=== PATIENT | female | born 1940 | race Caucasian/White ===

== ENCOUNTER → 2017-03-08 | Outpatient (CLI) | payer OTHER, MEDICARE | LOC: FIMAGING 10:53 | PROVIDERS: ATTEND Internal Medicine | DX: Z12.31 Encounter for screening mammogram for malignant neoplasm of breast (principal) | CPT/HCPCS: G0202 ==

== ENCOUNTER → 2017-03-09 | Outpatient (CLI) | payer OTHER, MEDICARE | LOC: FIMAGING 13:35 | PROVIDERS: ATTEND Internal Medicine | DX: M79.89 Other specified soft tissue disorders (principal) ==

== ENCOUNTER → 2017-03-20 | Outpatient (CLI) | payer OTHER, MEDICARE | LOC: FIMAGING 13:55 | PROVIDERS: ATTEND Internal Medicine | DX: Z12.39 Encounter for other screening for malignant neoplasm of breast (principal); N63 Unspecified lump in breast ==

== ENCOUNTER → 2017-04-02 | Outpatient (CLI) | payer OTHER, MEDICARE ==
[~2017-04-02] MED LIST: BUPIVACAINE 0.5% 10 ML SDV ONE; LIDO/EPI 1% **Not for Epidural 20 ML MDV ONE; LIDOCAINE 1% 300 MG/30 ML SDV ONE; THROMBIN (BOVINE) 5,000 UNIT VIAL TP ONE
== END ==
LOC: FIMAGING 07:00
PROVIDERS: ATTEND Internal Medicine
PROC: 0HBU3ZX Excision of Left Breast, Percutaneous Approach, Diagnostic (ICD-10-PCS; principal; 2017-04-02)
DX: C50.912 Malignant neoplasm of unspecified site of left female breast (principal)
CPT/HCPCS: 19083; 19084; 88360; G0206

== ENCOUNTER → 2017-04-12 | Outpatient (CLI) | payer OTHER, MEDICARE ==
[~2017-04-12] MED LIST changes: -BUPIVACAINE 0.5% 10 ML SDV ONE; +GADOBUTROL 10 ML VIAL IVP ONE; -LIDO/EPI 1% **Not for Epidural 20 ML MDV ONE; -LIDOCAINE 1% 300 MG/30 ML SDV ONE; -THROMBIN (BOVINE) 5,000 UNIT VIAL TP ONE
== END ==
LOC: FIMAGING 08:56
PROVIDERS: ATTEND Surgery
DX: C50.412 Malignant neoplasm of upper-outer quadrant of left female breast (principal)
CPT/HCPCS: 0159T; A9585; C8908

== ENCOUNTER → 2017-04-25 | Outpatient (CLI) | payer OTHER, MEDICARE | LOC: FIMAGING 12:40 | PROVIDERS: ATTEND Internal Medicine | DX: Z13.820 Encounter for screening for osteoporosis (principal); M81.0 Age-related osteoporosis without current pathological fracture; Z78.0 Asymptomatic menopausal state ==

== ENCOUNTER 2017-05-08 08:20 | Inpatient (IN) | payer OTHER, MEDICARE ==
[2017-05-08] MEDS ORDERED: ceFAZolin 2 GM/SWFI 2 GM/20 ML SYR IVP ONE (09:23)
[2017-05-08] MEDS ORDERED: LIDOCAINE 1% 2 ML INJ ID PRN (09:25)
[2017-05-08] MEDS ORDERED: LR 1,000 ML IV ONE (09:25)
[2017-05-08] MEDS ORDERED: THROMBIN (BOVINE) 20,000 UNIT SPRAY TP ONE (09:30)
[2017-05-08] MEDS ORDERED: BUPIVACAINE 0.5% 30 ML SDV ONE (09:30)
--- NOTE | 2017-05-08 09:47 | CPEKG ---
Heart Rate: 71 RR Interval: 845 P-R Interval: 144 QRSD Interval: 92 QT Interval: 428 QTC Interval: 466 P [place]: 72 QRS [place]: 47 T Wave [place]: 60 EKG Severity - NORMAL ECG - EKG Impression: SINUS RHYTHM Electronically Signed By: Hayder Desir 08-May-2017 10:06:32
[2017-05-08 10:19] LABS: PLATELET COUNT 215 10^3/uL (150-400)
--- NOTE | 2017-05-08 10:22 | PDHPUP ---
History & Physical Update H&P update statement: This history and physical update is based on an assessment of the patient which was completed after admission or registration (within 24 hours), but prior to the surgery/procedure. H&P update: H&P reviewed & patient examined, no change in patient's condition since H&P completed
[2017-05-08] MEDS ORDERED: MIDAZOLAM 2 MG/2 ML VIAL ONE (12:24)
[2017-05-08] MEDS ORDERED: PROPOFOL 200 MG/20 ML VIAL ONE ×2 (12:25)
[2017-05-08] MEDS ORDERED: fentaNYL 100 MCG/2 ML INJ ONE (12:25)
[2017-05-08] MEDS ORDERED: LIDOCAINE 2% 5 ML SDV ONE (12:28)
[2017-05-08] MEDS ORDERED: MIDAZOLAM 2 MG/2 ML VIAL IVP ONE (12:33)
--- NOTE | 2017-05-08 12:45 | PDANEPAE ---
ANE History of Present Illness h/o breast ca ANE Past Medical History - Cardiovascular History Hx Hypertension: Yes Hx Arrhythmias: No Hx Chest Pain: No Hx Coronary Artery / Peripheral Vascular Disease: No Hx CHF / Valvular Disease: No Hx Palpitations: No Cardiovascular History Comment: h/o aaa - Pulmonary History Hx COPD: Yes Hx Recent Upper Respiratory Infection: Yes Hx Oxygen in Use at Home: Yes O2 in Use at Home (L/minute): 2-3L Hx Sleep Apnea: No Sleep Apnea Screening Result - Last Documented: Positive Pulmonary History Comment: RECORDS FROM [facility] - Neurologic History Hx Cerebrovascular Accident: No Hx Seizures: No Hx Dementia: No - Endocrine History Hx Diabetes: No Obesity: yes - Renal History Hx Renal Disorders: Yes Renal History Comment: 2013 KIDNEY STONES - Liver History Hx Hepatic Disorders: No - Neurological & Psychiatric Hx Hx Neurological and Psychiatric Disorders: No - Cancer History Hx Cancer: Yes - Congenital Disorder History Hx Congenital Disorders: No - GI History Hx Gastrointestinal Disorders: No - Other Health History Other Health History: LEFT EYE DRY SCALEY - Chronic Pain History Chronic Pain: Yes (LOWER BACK) - Surgical History Prior Surgeries: AAA 2013, 2010 FX RIGHT HIP WITH HARDWARE ANE Review of Systems Review of Systems: - Exercise capacity METS (RN): 3 METS ANE Patient History - Allergies Allergies/Adverse Reactions: No Known Allergies Allergy (Verified 05/04/17 16:16) - Home Medications Home medications: home medication list seen and reviewed Home Medications: Albuterol [Proventil Inhaler HFA (*)] 1 - 2 puffs IH DAILY PRN 05/03/17 [Last Taken 05/06/17] Aspirin [Aspirin 81mg (*)] 81 mg PO DAILY 05/03/17 [Last Taken 05/01/17] Atorvastatin Calcium [Lipitor 20 mg (*)] 20 mg PO DAILY18 05/03/17 [Last Taken 05/07/17] Carvedilol [Coreg (*)] 25 mg PO BIDMEAL 05/03/17 [Last Taken 05/08/17] Lisinopril [Zestril 10 mg (*)] 10 mg PO DAILY 05/03/17 [Last Taken 05/08/17] Umeclidinium Brm/Vilanterol Tr [Anoro Ellipta 62.5-25 Mcg INH] 1 each IH DAILY 05/03/17 [Last Taken 05/07/17] - NPO status NPO Since - Liquids (Date): 05/08/17 NPO Since - Liquids (Time): 04:30 NPO Since - Solids (Date): 05/07/17 NPO Since - Solids (Time): 19:00 - Anes Hx Anes Hx: slow to awaken from anesthesia - Smoking Hx Smoking Status: Former smoker - Family Anes Hx Family Hx Anesthesia Complications: NONE ANE Labs/Vital Signs - Labs Result Diagrams: 05/08/17 09:55 05/08/17 09:55 - Vital Signs Blood Pressure: 141/62 Heart Rate: 72 Respiratory Rate: 16 O2 Sat (%): 90 Height: 162.56 cm Weight: 102.058 kg ANE Physical Exam - Airway Neck exam: FROM Mallampati Score: Class 2 Mouth exam: normal dental/mouth exam - Pulmonary Pulmonary: no respiratory distress - Cardiovascular Cardiovascular: regular rate and rhythym - ASA Status ASA Status: III ANE Anesthesia Plan Anesthesia Plan: GA w LMA Urgent/Emergent Case: Vickie acuña completed preop but documented later for safe timely pt care
[2017-05-08] MEDS ORDERED: DEXAMETHASONE 4 MG/ML VIAL ONE (12:52)
[2017-05-08] MEDS ORDERED: ONDANSETRON 4 MG/2 ML VIAL ONE (12:53)
[2017-05-08] MEDS ORDERED: HYDROmorphONE/DILAUDID 2 MG/ML INJ ONE (13:06)
[2017-05-08] MEDS ORDERED: OXYCODONE/APAP 5/325 TAB PO PRN (14:21)
[2017-05-08] MEDS ORDERED: ALBUTEROL 3 ML DEYVIAL IH PRN (14:21)
[2017-05-08] MEDS ORDERED: LR 500 ML IV PRN (14:21)
[2017-05-08] MEDS ORDERED: fentaNYL 100 MCG/2 ML INJ IVP PRN (14:21)
[2017-05-08] MEDS ORDERED: ONDANSETRON 4 MG/2 ML VIAL IVP PRN ×2 (14:21→15:00)
[2017-05-08] MEDS ORDERED: PROMETHAZINE HCL 25 MG/ML INJ IVP PRN (14:21)
[2017-05-08] MEDS ORDERED: ACETAMINOPHEN 500 MG TAB PO PRN (14:21)
[2017-05-08] MEDS ORDERED: LABETALOL HCL 50 MG/10 ML SYR IVP PRN (14:21)
[2017-05-08] MEDS ORDERED: NALOXONE HCL 0.4 MG/ML INJ IVP PRN (14:21)
--- NOTE | 2017-05-08 14:51 | POSTANESTH ---
Post Anesthetic Evaluation Cardiovascular Status: Normal, Stable Respiratory Status: Normal, Stable Level of Consciousness/Mental Status: Can Participate in Eval Pain Control: Adequate, Prn Tx Ordered Nausea/Vomiting Control: Adequate, Prn Tx Ordered Complications Possibly Related to Anesthesia: None Noted
[2017-05-08] MEDS ORDERED: HYDROmorphONE/DILAUDID 1 MG/ML INJ ONE (14:54)
[2017-05-08] MEDS: HYDROmorphONE/DILAUDID 1 MG/ML INJ IVP PRN ×3 (14:55→15:29)
--- NOTE | 2017-05-08 14:55 | POSTOPPROG ---
Post Op Note Date of Operation: 05/08/17 Surgeon: Alexis Payne Continuous Linter Drier Operator: Marleen Byers Anesthesiologist: Cedric Holcomb Anesthesia: GET(General Endotracheal) Pre-op Diagnosis: Left multifocal breast cancer Post-op Diagnosis: same Procedure: B mastectomy, L sentinel LN biopsy Findings: LN not localized on R, 3 negative L sentinel LNs Inf/Abcess present in the surg proc area at time of surgery?: No EBL: 50-100 Complications: none Drains: Jose Tenorio (x4) Specimen(s): R and L breasts and L sentinel LNs to pathology
[2017-05-08] MEDS ORDERED: HYDROmorphone HCL/NS/PF 0.4 MG/2 ML SYR IVP PRN (15:00)
[2017-05-08] MEDS ORDERED: ALBUTEROL 200 PUFFS/18 GM MDI IH PRN (15:02)
[2017-05-08] MEDS: NS W/ 20 KCl/L 1,000 ML IV SCH (17:56)
[2017-05-08] MEDS: KETOROLAC 15 MG/1 ML SDV IVP SCH (20:00)
[2017-05-08] MEDS: CARVEDILOL 25 MG TAB PO SCH (21:34)
[2017-05-08] MEDS: ATORVASTATIN CALCIUM 20 MG TAB PO SCH (21:34)
[2017-05-08] MEDS: OXYCODONE/APAP 5/325 TAB PO PRN (21:35)
[2017-05-08] MEDS: DOCUSATE SODIUM 100 MG CAP PO SCH (21:35)
[2017-05-09] MEDS: KETOROLAC 15 MG/1 ML SDV IVP SCH ×2 (03:03→05:34)
[2017-05-09] MEDS: Umeclidinium Brm/Vilanterol Tr [Anoro Ellipta 62.5-25 Mcg Inh] IH SCH (09:15)
[2017-05-09] MEDS: LISINOPRIL 10 MG TAB PO SCH (09:54)
[2017-05-09] MEDS: CARVEDILOL 25 MG TAB PO SCH ×2 (09:54→18:10)
[2017-05-09] MEDS: DOCUSATE SODIUM 100 MG CAP PO SCH ×2 (09:54→20:32)
[2017-05-09] MEDS: ASPIRIN 81 MG CHEWABLE TAB PO SCH (09:54)
[2017-05-09] MEDS: OXYCODONE/APAP 5/325 TAB PO PRN ×3 (10:00→22:11)
[2017-05-09] MEDS ORDERED: IBUPROFEN 600 MG TAB PO PRN (11:11)
--- NOTE | 2017-05-09 11:20 | SOAPPROG ---
SOAP Progress Note Assessment/Plan: Assessment/Plan: 76 Y F s/p B mastectomy and L SN bx, POD#1. Doing quite well overall. Also seen by Dr. Payne. Slight Cr elevation to 1.1. Will be cautious and hold toradol. Will use ibuprofen instead. ESTEBAN drainage. Continue to strip and record. Drainage slightly high, but appears serosanguinous. Will repeat H&H in am. Pain is controlled. Regular diet. Binder PRN comfort. Dressing change and shower tomorrow. Dispo: likely home tomorrow. Rx percocet and ibuprofen in chart. S: pain controlled. oob in chair. positive attitude. no sob. eating breakfast. O: alert, nad mmm no wob abd soft wounds dressed, no saturation 05/09/17 11:20 Objective: Vital Signs Temp Pulse Resp BP Pulse Ox 36.5 C 83 18 134/61 H 93 05/09/17 08:06 05/09/17 08:06 05/09/17 08:06 05/09/17 08:06 05/09/17 08:06 Laboratory Results 05/09/17 04:42 05/09/17 04:42 05/08/17 05/09/17 05/10/17 05:59 05:59 05:59 Intake Total 0833 Output Total 869 300 Balance 1178 -300 ICD10 Worksheet Patient Problems: Problems Problem Status Onset Breast cancer Acute - ICD10 Problem Qualifiers (1) Breast cancer Qualifiers: Laterality: left
--- NOTE | 2017-05-09 11:20 | SOAPPROG ---
SOAP Progress Note Assessment/Plan: Assessment/Plan: 76 Y F s/p B mastectomy and L SN bx, POD#1. Doing quite well overall. Also seen by Dr. Payne. Slight Cr elevation to 1.1. Will be cautious and hold toradol. Will use ibuprofen instead. ESTEBAN drainage. Continue to strip and record. Drainage slightly high, but appears serosanguinous. Will repeat H&H in am. Pain is controlled. Regular diet. Binder PRN comfort. Dressing change and shower tomorrow. Dispo: likely home tomorrow. Rx percocet and ibuprofen in chart. S: pain controlled. oob in chair. positive attitude. no sob. eating breakfast. O: alert, nad mmm no wob abd soft wounds dressed, no saturation 05/09/17 11:20 Objective: Vital Signs Temp Pulse Resp BP Pulse Ox 36.5 C 83 18 134/61 H 93 05/09/17 08:06 05/09/17 08:06 05/09/17 08:06 05/09/17 08:06 05/09/17 08:06 Laboratory Results 05/09/17 04:42 05/09/17 04:42 05/08/17 05/09/17 05/10/17 05:59 05:59 05:59 Intake Total 2233 Output Total 860 300 Balance 1178 -300 ICD10 Worksheet Patient Problems: Problems Problem Status Onset Breast cancer Acute - ICD10 Problem Qualifiers (1) Breast cancer Qualifiers: Laterality: left
--- NOTE | 2017-05-09 11:20 | SOAPPROG ---
SOAP Progress Note Assessment/Plan: Assessment/Plan: 76 Y F s/p B mastectomy and L SN bx, POD#1. Doing quite well overall. Also seen by Dr. Payne. Slight Cr elevation to 1.1. Will be cautious and hold toradol. Will use ibuprofen instead. ESTEBAN drainage. Continue to strip and record. Drainage slightly high, but appears serosanguinous. Will repeat H&H in am. Pain is controlled. Regular diet. Binder PRN comfort. Dressing change and shower tomorrow. Dispo: likely home tomorrow. Rx percocet and ibuprofen in chart. S: pain controlled. oob in chair. positive attitude. no sob. eating breakfast. O: alert, nad mmm no wob abd soft wounds dressed, no saturation 05/09/17 11:20 Objective: Vital Signs Temp Pulse Resp BP Pulse Ox 36.5 C 83 18 134/61 H 93 05/09/17 08:06 05/09/17 08:06 05/09/17 08:06 05/09/17 08:06 05/09/17 08:06 Laboratory Results 05/09/17 04:42 05/09/17 04:42 05/08/17 05/09/17 05/10/17 05:59 05:59 05:59 Intake Total 9153 Output Total 866 300 Balance 1178 -300 ICD10 Worksheet Patient Problems: Problems Problem Status Onset Breast cancer Acute - ICD10 Problem Qualifiers (1) Breast cancer Qualifiers: Laterality: left
[2017-05-09] MEDS: ATORVASTATIN CALCIUM 20 MG TAB PO SCH (18:10)
[2017-05-09] MEDS: NS W/ 20 KCl/L 1,000 ML IV SCH (22:11)
[2017-05-09 22:15] VITALS: RESP 16
[2017-05-10] MEDS: OXYCODONE/APAP 5/325 TAB PO PRN ×2 (02:35→09:21)
[2017-05-10 07:56] VITALS: BP 97/49; PULSE 76; TEMP 97.9; O2SAT 92
[2017-05-10] MEDS ORDERED: ENOXAPARIN 40 MG/0.4 ML SYR SC SCH (09:00)
[2017-05-10] MEDS: ASPIRIN 81 MG CHEWABLE TAB PO SCH (09:20)
[2017-05-10] MEDS: DOCUSATE SODIUM 100 MG CAP PO SCH (09:21)
[2017-05-10] MEDS: CARVEDILOL 25 MG TAB PO SCH (09:23)
[2017-05-10] MEDS: LISINOPRIL 10 MG TAB PO SCH (09:23)
[2017-05-10] MEDS: Umeclidinium Brm/Vilanterol Tr [Anoro Ellipta 62.5-25 Mcg Inh] IH SCH ×2 (10:09→10:13)
--- NOTE | 2017-05-10 12:19 | ASMTCMCOM ---
CM Note CM Note Notes: Pt admitted for L breast mastectomy. Pt to DC today with no DC needs. Date Signed: 05/10/2017 12:18 PM Electronically Signed By:Suzette Montana LCSW
--- NOTE | 2017-05-10 12:27 | SOAPPROG ---
SOAP Progress Note Assessment/Plan: Assessment: 76-year-old female status post bilateral mastectomy Doing well, tolerating regular diet, pain well controlled on oral pain medicine. Physical exam Stable incisions clean dry and intact drains with a small amount of serosanguineous discharge CTA bilaterally Plan: Seen examined by Dr. Payne Prescription given to patient Okay to discharge home with daughter Patient has outpatient follow-up with Dr. Velazquez scheduled 05/10/17 12:26 Objective: Vital Signs Temp Pulse Resp BP Pulse Ox 36.6 C 76 16 97/49 L 92 05/10/17 07:51 05/10/17 07:51 05/10/17 07:51 05/10/17 09:23 05/10/17 07:51 Laboratory Results 05/10/17 04:59 05/09/17 04:42 05/09/17 05/10/17 05/11/17 05:59 05:59 05:59 Intake Total 2043 3200 Output Total 865 701 105 Balance 1178 2499 -105 ICD10 Worksheet Patient Problems: Problems Problem Status Onset Breast cancer Acute
--- NOTE | 2017-05-10 16:39 | ASDISCHSUM ---
Discharge Information Plan Status: Medically Cleared to Leave: Discharge Date:05/10/2017 02:56 PM CM D/C Disposition: ADT D/C Disposition:Home, Routine, Self-Care Projected Discharge Date:05/10/2017 02:56 PM Transportation at D/C: Discharge Delay Reason: Follow-Up Date:05/10/2017 02:56 PM Discharge Slot: Final Diagnosis: Placement Information Patient Contact Information Contact Name:DEZ Relationship:Daughter Address: City: [facility] Phone: State/Zip Code: Email: Financial Information Financial Class: Primary Plan Desc:MEDICARE INPATIENT Primary Plan Number:[id number] Secondary Plan Desc:AARP/MDR SUPPLEMENT Secondary Plan Number:[id number] Assessment Information [facility] CM Progress Note CM Note CM Note Notes: Pt admitted for L breast mastectomy. Pt to DC today with no DC needs. Date Signed: 05/10/2017 12:18 PM Electronically Signed By:Suzette Montana LCSW Intervention Information Intervention Type:*MAI-Signed Date of Service:05/09/2017 11:30 AM Patient Type:Observation Staff Member:Ratna Basilio Hours: Discipline: Severity: Comment: Intervention Type:*Ubaldo 74 Date of Service:05/10/2017 03:50 PM Patient Type:Inpatient Staff Member:СЕРГЕЙ Farrar Susan Hours: Discipline: Severity: Comment:
--- NOTE | 2017-05-10 16:39 | ASDISCHSUM ---
Discharge Information Plan Status: Medically Cleared to Leave: Discharge Date:05/10/2017 02:56 PM CM D/C Disposition: ADT D/C Disposition:Home, Routine, Self-Care Projected Discharge Date:05/10/2017 02:56 PM Transportation at D/C: Discharge Delay Reason: Follow-Up Date:05/10/2017 02:56 PM Discharge Slot: Final Diagnosis: Placement Information Patient Contact Information Contact Name:DEZ Relationship:Daughter Address: City: [facility] Phone: State/Zip Code: Email: Financial Information Financial Class: Primary Plan Desc:MEDICARE INPATIENT Primary Plan Number:[id number] Secondary Plan Desc:AARP/MDR SUPPLEMENT Secondary Plan Number:[id number] Assessment Information [facility] CM Progress Note CM Note CM Note Notes: Pt admitted for L breast mastectomy. Pt to DC today with no DC needs. Date Signed: 05/10/2017 12:18 PM Electronically Signed By:Suzette Montana LCSW Intervention Information Intervention Type:*MAI-Signed Date of Service:05/09/2017 11:30 AM Patient Type:Observation Staff Member:Ratna Basilio Hours: Discipline: Severity: Comment: Intervention Type:*Ubaldo 72 Date of Service:05/10/2017 03:50 PM Patient Type:Inpatient Staff Member:СЕРГЕЙ Farrar Susan Hours: Discipline: Severity: Comment:
--- NOTE | 2017-05-10 16:39 | ASDISCHSUM ---
Discharge Information Plan Status: Medically Cleared to Leave: Discharge Date:05/10/2017 02:56 PM CM D/C Disposition: ADT D/C Disposition:Home, Routine, Self-Care Projected Discharge Date:05/10/2017 02:56 PM Transportation at D/C: Discharge Delay Reason: Follow-Up Date:05/10/2017 02:56 PM Discharge Slot: Final Diagnosis: Placement Information Patient Contact Information Contact Name:DEZ Relationship:Daughter Address: City: [facility] Phone: State/Zip Code: Email: Financial Information Financial Class: Primary Plan Desc:MEDICARE INPATIENT Primary Plan Number:[id number] Secondary Plan Desc:AARP/MDR SUPPLEMENT Secondary Plan Number:[id number] Assessment Information [facility] CM Progress Note CM Note CM Note Notes: Pt admitted for L breast mastectomy. Pt to DC today with no DC needs. Date Signed: 05/10/2017 12:18 PM Electronically Signed By:Suzette Montana LCSW Intervention Information Intervention Type:*MAI-Signed Date of Service:05/09/2017 11:30 AM Patient Type:Observation Staff Member:Ratna Basilio Hours: Discipline: Severity: Comment: Intervention Type:*Ubaldo 72 Date of Service:05/10/2017 03:50 PM Patient Type:Inpatient Staff Member:СЕРГЕЙ Farrar Susan Hours: Discipline: Severity: Comment:
--- NOTE | 2017-05-10 18:46 | GDS ---
[f rep st] DISCHARGE SUMMARY ADMISSION DIAGNOSIS: Breast cancer. OTHER PERTINENT DIAGNOSES: Chronic obstructive pulmonary disease. HOSPITAL COURSE: The patient is a very pleasant, 76-year-old female, who had diagnosed left multifoc al breast cancer on biopsy. She underwent bilateral mastectomy and left sentinel node excision with Dr. Payne on 05/08/2017. Hospital course fairly unremarkable, the patient is being discharged home w [facility] Percocet for pain control, #30. She has received drain teaching as she is being sent home with J ackson-Tenorio drains in place. She will call our office to schedule appointment for early next week, for wound check and drain remov al. It was explained to the patient that julien will likely be removed at a later date. Pathology from the surgery is still pending at the time of this dictation, the time of discharge. Her lymph no de excision was negative on frozen section during the surgery. /[id number]/MODL
--- NOTE | 2017-05-10 18:46 | GDS ---
[f rep st] DISCHARGE SUMMARY ADMISSION DIAGNOSIS: Breast cancer. OTHER PERTINENT DIAGNOSES: Chronic obstructive pulmonary disease. HOSPITAL COURSE: The patient is a very pleasant, 76-year-old female, who had diagnosed left multifoc al breast cancer on biopsy. She underwent bilateral mastectomy and left sentinel node excision with Dr. Payne on 05/08/2017. Hospital course fairly unremarkable, the patient is being discharged home w [facility] Percocet for pain control, #30. She has received drain teaching as she is being sent home with J ackson-Tenorio drains in place. She will call our office to schedule appointment for early next week, for wound check and drain remov al. It was explained to the patient that julien will likely be removed at a later date. Pathology from the surgery is still pending at the time of this dictation, the time of discharge. Her lymph no de excision was negative on frozen section during the surgery. /[id number]/MODL
--- NOTE | 2017-05-10 18:46 | GDS ---
[f rep st] DISCHARGE SUMMARY ADMISSION DIAGNOSIS: Breast cancer. OTHER PERTINENT DIAGNOSES: Chronic obstructive pulmonary disease. HOSPITAL COURSE: The patient is a very pleasant, 76-year-old female, who had diagnosed left multifoc al breast cancer on biopsy. She underwent bilateral mastectomy and left sentinel node excision with Dr. Payne on 05/08/2017. Hospital course fairly unremarkable, the patient is being discharged home w [facility] Percocet for pain control, #30. She has received drain teaching as she is being sent home with J ackson-Tenorio drains in place. She will call our office to schedule appointment for early next week, for wound check and drain remov al. It was explained to the patient that julien will likely be removed at a later date. Pathology from the surgery is still pending at the time of this dictation, the time of discharge. Her lymph no de excision was negative on frozen section during the surgery. /[id number]/MODL
== END 2017-05-10 14:56 | disposition home or self-care (01) | DRG 581 ==
LOC: F3E 08:51 → F1N 12:00 → OBSVTOIN 05-09 12:30
PROVIDERS: ADMIT Surgery; ATTEND Surgery
DX: C50.412 Malignant neoplasm of upper-outer quadrant of left female breast (principal); J44.9 Chronic obstructive pulmonary disease, unspecified; Z87.891 Personal history of nicotine dependence
CPT/HCPCS: A9520; J0690; J1100; J1170; J1650; J1885; J2250; J2405; J2704; J3010

== ENCOUNTER → 2017-06-04 | Outpatient (CLI) | payer OTHER, MEDICARE | LOC: BHFA 13:15 | PROVIDERS: ATTEND Internal Medicine Cardiovascular Disease | DX: Z51.11 Encounter for antineoplastic chemotherapy (principal) ==

== ENCOUNTER 2017-06-08 07:57 | Day surgery (SDC) | payer OTHER, MEDICARE ==
--- NOTE | 2017-06-06 15:55 | GHP ---
[f rep st] PREOP HISTORY AND PHYSICAL DATE OF ADMISSION: 06/08/2017 HISTORY OF PRESENT ILLNESS: The patient is a pleasant, 76-year-old female, status post bilateral mas tectomy for multifocal ER/SC negative, HER-2 positive left breast cancer. She is also followed by On cology and has plans for chemotherapy. She is here for PowerPort placement. Incidentally, she also has seen Physical Therapy and had a heart echo at which time, seromas were kyler ntified. These do not bother her, but she wonders if they need to be aspirated. PAST MEDICAL HISTORY: Includes breast cancer, as described above. Also COPD, hypertension, abdomina l aortic aneurysm, mitral valve disease, history of ureteral calculus, obesity. PAST SURGICAL HISTORY: Aortic aneurysm repair, mastectomy as described above, cholecystectomy, right hip fracture repair. MEDICATIONS: Include albuterol, Anoro Ellipta inhaler, 81 mg aspirin, atorvastatin, carvedilol, lorna nopril. ALLERGIES: Cats. SOCIAL HISTORY: Patient is . She is a former smoker and quit in 2010. She is often here wi th her daughter for clinic visits. PHYSICAL EXAM: GENERAL: Reveals a well-developed, well-nourished, 76-year-old female, increased BMI , in no acute distress. HEENT: Normocephalic, atraumatic. CHEST: Clear to auscultation bilaterall y. CARDIAC: Regular rate and rhythm. ABDOMEN: Soft, nontender, obese. BREAST EXAM: Bilateral ma stectomy incisions are clean, dry, and intact, without erythema. IMPRESSION: This is a 76-year-old female with multifocal ER/SC negative, HER-2 positive left breast cancer status post surgery needing a port for chemotherapy. PLAN: Plan is to proceed with a PowerPort placement with fluoroscopic guidance. Risks and options h ave been discussed including, but not limited to, bleeding, infection, nerve injury, pneumothorax, he mothorax, failure to place port, need for opposite side port placement, port malfunction, need for re vision and/or replacement, alternate access and other problems, and she requests to proceed. Also she will talk with Dr. Payne the morning of surgery about her mastectomy site seromas. These co uld be aspirated if they decide to in the operating room. /[id number]/MODL
--- NOTE | 2017-06-07 17:55 | PDHPUP ---
History & Physical Update H&P update statement: This history and physical update is based on an assessment of the patient which was completed after admission or registration (within 24 hours), but prior to the surgery/procedure. Updated
[2017-06-08] MEDS ORDERED: SODIUM BICARBONATE 10 MEQ/10 ML SYR IVP ONE (08:09)
[2017-06-08] MEDS ORDERED: BUPIVACAINE 0.5% 30 ML SDV ONE (08:09)
[2017-06-08] MEDS ORDERED: BACITRACIN ZINC 14.2 GM OINTTUBE TP ONE (08:10)
[2017-06-08] MEDS ORDERED: LIDOCAINE 1% 300 MG/30 ML SDV ONE (08:10)
[2017-06-08] MEDS ORDERED: ceFAZolin 2 GM/SWFI 2 GM/20 ML SYR IVP ONE (08:31)
[2017-06-08] MEDS ORDERED: LR 1,000 ML IV ONE (08:32)
[2017-06-08] MEDS ORDERED: LIDOCAINE 1% 2 ML INJ ID PRN (08:32)
[2017-06-08 08:41] VITALS: PULSE 69; RESP 16
[2017-06-08] MEDS ORDERED: MIDAZOLAM 2 MG/2 ML VIAL IVP ONE (09:03)
--- NOTE | 2017-06-08 09:04 | PDANEPAE ---
ANE History of Present Illness breast ca ANE Past Medical History - Cardiovascular History Hx Hypertension: Yes Hx Arrhythmias: No Hx Chest Pain: No Hx Coronary Artery / Peripheral Vascular Disease: No Hx CHF / Valvular Disease: No Hx Palpitations: No Cardiovascular History Comment: h/o aaa - Pulmonary History Hx COPD: Yes Hx Asthma/Reactive Airway Disease: No Hx Recent Upper Respiratory Infection: Yes Hx Oxygen in Use at Home: Yes O2 in Use at Home (L/minute): 2L NC for night and walking Hx Sleep Apnea: No Sleep Apnea Screening Result - Last Documented: Negative Pulmonary History Comment: RECORDS FROM [facility] - Neurologic History Hx Cerebrovascular Accident: No Hx Seizures: No Hx Dementia: No - Endocrine History Hx Diabetes: No Obesity: yes, moderate - Renal History Hx Renal Disorders: Yes Renal History Comment: 2013 KIDNEY STONES - Liver History Hx Hepatic Disorders: No - Neurological & Psychiatric Hx Hx Neurological and Psychiatric Disorders: No - Cancer History Hx Cancer: Yes Cancer History Comment: L breast CA-will undergo chemo 06-24. - Congenital Disorder History Hx Congenital Disorders: No - GI History Hx Gastrointestinal Disorders: No - Other Health History Other Health History: LEFT EYE DRY SCALEY - Chronic Pain History Chronic Pain: Yes (LOWER BACK) - Surgical History Prior Surgeries: AAA 2013, 2010 FX RIGHT HIP WITH HARDWARE ANE Review of Systems Review of Systems: - Exercise capacity METS (RN): 3 METS ANE Patient History - Allergies Allergies/Adverse Reactions: No Known Allergies Allergy (Verified 05/28/17 14:05) - Home Medications Home medications: home medication list seen and reviewed Home Medications: Albuterol [Proventil Inhaler HFA (*)] 1 - 2 puffs IH DAILY PRN 05/03/17 [Last Taken 06/06/17] Aspirin [Aspirin 81mg (*)] 81 mg PO DAILY 05/03/17 [Last Taken 1 Week Ago ~06/01] Atorvastatin Calcium [Lipitor 20 mg (*)] 20 mg PO DAILY18 05/03/17 [Last Taken 06/07/17] Carvedilol [Coreg (*)] 25 mg PO BIDMEAL 05/03/17 [Last Taken 06/08/17 06:00] Lisinopril [Zestril 10 mg (*)] 10 mg PO DAILY 05/03/17 [Last Taken 06/08/17 06: 00] Umeclidinium Brm/Vilanterol Tr [Anoro Ellipta 62.5-25 Mcg INH] 1 each IH DAILY 05/03/17 [Last Taken 06/08/17 06:00] - NPO status NPO Since - Liquids (Date): 06/07/17 NPO Since - Liquids (Time): 20:00 NPO Since - Solids (Date): 06/07/17 NPO Since - Solids (Time): 20:00 - Smoking Hx Smoking Status: Former smoker - Family Anes Hx Family Hx Anesthesia Complications: NONE ANE Labs/Vital Signs - Vital Signs Blood Pressure: 125/50 Heart Rate: 69 Respiratory Rate: 16 O2 Sat (%): 90 Height: 165.1 cm Weight: 97.522 kg ANE Physical Exam - Airway Neck exam: FROM Mallampati Score: Class 2 Mouth exam: normal dental/mouth exam - Pulmonary Pulmonary: no respiratory distress - Cardiovascular Cardiovascular: regular rate and rhythym - ASA Status ASA Status: III ANE Anesthesia Plan Anesthesia Plan: GA w LMA
[2017-06-08] MEDS ORDERED: PROPOFOL 200 MG/20 ML VIAL ONE ×2 (09:07)
[2017-06-08] MEDS ORDERED: fentaNYL 100 MCG/2 ML INJ ONE ×2 (09:07→10:49)
--- NOTE | 2017-06-08 09:08 | POSTOPPROG ---
Post Op Note Date of Operation: 06/08/17 Surgeon: Alexis Payne Anesthesiologist: kindra Anesthesia: GET(General Endotracheal) Pre-op Diagnosis: breast cancer Post-op Diagnosis: same Indication: chemo Procedure: rt subclavian port with flouro Findings: good position and flow Inf/Abcess present in the surg proc area at time of surgery?: No Depth: Deep Incisional (Fascial) EBL: Minimal
[2017-06-08] MEDS ORDERED: LIDOCAINE 2% 5 ML SDV ONE (09:09)
[2017-06-08] MEDS ORDERED: DEXAMETHASONE 4 MG/ML VIAL ONE (09:12)
[2017-06-08] MEDS ORDERED: ONDANSETRON 4 MG/2 ML VIAL ONE (09:12)
[2017-06-08] MEDS ORDERED: HYDROCODONE/APAP 5/325 TAB PO PRN (09:55)
[2017-06-08] MEDS ORDERED: OXYCODONE/APAP 5/325 TAB PO PRN (09:55)
[2017-06-08] MEDS ORDERED: fentaNYL 100 MCG/2 ML INJ IVP PRN (09:55)
[2017-06-08] MEDS ORDERED: LR 500 ML IV PRN (09:55)
[2017-06-08] MEDS ORDERED: ONDANSETRON 4 MG/2 ML VIAL IVP PRN (09:55)
[2017-06-08] MEDS ORDERED: ALBUTEROL 3 ML DEYVIAL IH PRN (09:55)
[2017-06-08] MEDS ORDERED: HYDROmorphONE/DILAUDID 1 MG/ML INJ IVP PRN (09:55)
[2017-06-08] MEDS ORDERED: ACETAMINOPHEN 500 MG TAB PO PRN (09:55)
[2017-06-08] MEDS ORDERED: NALOXONE HCL 0.4 MG/ML INJ IVP PRN (09:55)
[2017-06-08] MEDS ORDERED: PHENYLEPHRINE HCL 100 MCG/ML SYR ONE (09:57)
[2017-06-08 12:08] VITALS: BP 154/71; O2SAT 91
[2017-06-08 14:09] VITALS: TEMP 97.9
--- NOTE | 2017-06-08 14:20 | GOP ---
[f rep st] OPERATIVE REPORT DATE OF OPERATION: SURGEON: Alexis Payne MD PRESS PULLER: No assistant store leader. ANESTHESIOLOGIST: Dr. Holcomb. PREOPERATIVE DIAGNOSIS: Breast cancer. POSTOPERATIVE DIAGNOSIS: Breast cancer. PROCEDURE PERFORMED: Right subclavian port placement for chemotherapy access with fluoroscopic ralph nce. FINDINGS: The patient was found to have good flow and good position of the catheter. DESCRIPTION OF PROCEDURE: The patient was taken to the operating room where she received satisfactor y general endotracheal anesthesia by Dr. Holcomb. She was placed in supine position, prepped and dr aped in usual sterile fashion, then placed in Trendelenburg. A direct stick was made in the right chavez bclavian vein. This was somewhat difficult, requiring several sticks to get good flow. The guidewir e was passed. Position was confirmed with fluoroscopy. A subcu pocket was made in the 2nd intercost al space. Port tubing was passed from that pocket to the insertion site, trimmed to the appropriate length using fluoroscopic guidance and introduced through the introducer sheath and dilator system in to the right atrium. Good backflow was achieved. The catheter was flushed with heparin and saline. Secured to the fascia with 3-0 Vicryl. Pocket was closed with 3-0 Vicryl for the subcu, 4-0 Prolene subcuticular stitch for the skin. All layers were infiltrated with 0.5% Marcaine. The entrance sit e was also closed with a Prolene mattress suture. There were no complications. She tolerated the pr ocedure well and was taken to the recovery room in good condition. /[id number]/MODL
== END 2017-06-08 12:10 | disposition home or self-care (01) ==
LOC: FSGY 07:57
PROVIDERS: ATTEND Surgery
DX: C50.912 Malignant neoplasm of unspecified site of left female breast (principal); Z90.13 Acquired absence of bilateral breasts and nipples; J44.9 Chronic obstructive pulmonary disease, unspecified; I10 Essential (primary) hypertension; I71.4 Abdominal aortic aneurysm, without rupture; Z87.891 Personal history of nicotine dependence; Z17.1 Estrogen receptor negative status [ER-]
CPT/HCPCS: C1788; J0690; J1100; J1642; J2250; J2370; J2405; J2704; J3010

== ENCOUNTER → 2017-08-15 | Outpatient (CLI) | payer OTHER, MEDICARE | LOC: BHFA 08:30 | PROVIDERS: ATTEND Internal Medicine Cardiovascular Disease | DX: Z51.11 Encounter for antineoplastic chemotherapy (principal) ==

== ENCOUNTER → 2017-09-12 | Outpatient (CLI) | payer OTHER, MEDICARE | LOC: FIMAGING 07:40 | PROVIDERS: ATTEND Nurse Practitioner | DX: Z13.828 Encounter for screening for other musculoskeletal disorder (principal); M79.89 Other specified soft tissue disorders ==

== ENCOUNTER → 2017-12-26 | Outpatient (CLI) | payer OTHER, MEDICARE | LOC: BHFA 10:00 | PROVIDERS: ATTEND Internal Medicine Cardiovascular Disease | DX: Z51.11 Encounter for antineoplastic chemotherapy (principal) ==

== ENCOUNTER → 2018-04-18 | Outpatient (CLI) | payer OTHER, MEDICARE | LOC: BHFA 10:45 | PROVIDERS: ATTEND Internal Medicine Cardiovascular Disease | DX: Z51.11 Encounter for antineoplastic chemotherapy (principal) ==

== ENCOUNTER → 2018-06-26 | Outpatient (CLI) | payer OTHER, MEDICARE | LOC: BHFA 09:15 | PROVIDERS: ATTEND Internal Medicine Cardiovascular Disease | DX: Z51.11 Encounter for antineoplastic chemotherapy (principal) ==

== ENCOUNTER → 2018-11-12 | Outpatient (CLI) | payer OTHER, MEDICARE | LOC: FIMAGING 08:56 | PROVIDERS: ATTEND Internal Medicine | DX: Z13.820 Encounter for screening for osteoporosis (principal); M81.0 Age-related osteoporosis without current pathological fracture; Z78.0 Asymptomatic menopausal state ==